=== PATIENT | male | born 1995 | race Caucasian/White ===

== ENCOUNTER 2023-10-30 10:05 | Emergency (ER) | payer OTHER ==
[~2023-10-30] VITALS: Ht 193 cm; Wt 72.6 kg
[2023-10-30 10:21] VITALS: BP 107/69; PULSE 72; RESP 18; TEMP 98; O2SAT 98
[2023-10-30] MEDS: NACL 0.9% 1,000 ML IV ONE (11:28)
[2023-10-30] MEDS: ONDANSETRON 4 MG/2 ML VIAL IVP ONE (11:30)
[2023-10-30 11:43] LABS: BASOPHILS % (AUTO) 0.3 % (0.0-2.0); EOSINOPHILS # (AUTO) 0.1 K/uL (0-0.4); EOSINOPHILS % (AUTO) 0.8 % (0.0-4.0); HEMATOCRIT 43.3 % (36-52); LYMPHOCYTES # (AUTO) 1.9 K/uL (2.0-11.5); LYMPHOCYTES % (AUTO) 25.1 % (20.5-51.1); MEAN CORPUSCULAR HEMOGLOBIN 33 pg (27-31); MEAN CORPUSCULAR HGB CONC 35 g/dL (33-37); MONOCYTES # (AUTO) 0.6 K/uL (0.8-1.0); MONOCYTES % (AUTO) 7.8 % (1.7-9.3); PLATELET COUNT (AUTO) 204 K/uL (140-450); RED BLOOD CELL COUNT(AUTO) 4.55 MIL/uL (4.20-6.10); RED CELL DISTRIBUTION WIDTH 12.9 % (11.6-13.7); WHITE BLOOD COUNT (AUTO) 7.6 K/uL (4.8-10.8)
[2023-10-30 11:53] LABS: ANION GAP 11.7 (8-16); CALCIUM 8.7 mg/dL (8.5-10.1); CARBON DIOXIDE 30.4 mmol/L (21-32); POTASSIUM 4.1 mmol/L (3.5-5.1)
[2023-10-30 12:07] LABS: ALBUMIN 3.9 g/dL (3.4-5.0); BILIRUBIN,DIRECT 0.2 mg/dL (0.0-0.3); TOTAL BILIRUBIN 1.3 mg/dL (0.0-1.0); TOTAL PROTEIN, SERUM 7.1 g/dL (6.4-8.2)
[2023-10-30] MEDS ORDERED: ONDA-188 SL (12:26)
[2023-10-30 12:45] VITALS: BP 111/61; PULSE 60; RESP 16; TEMP 36.66960; O2SAT 98
== END 2023-10-30 12:45 | disposition home or self-care (01) ==
LOC: MED 10:05
DX: A08.4 Viral intestinal infection, unspecified (principal); E05.90 Thyrotoxicosis, unspecified without thyrotoxic crisis or storm
CPT/HCPCS: 36415; 80048; 80076; 83690; 85025; 96360; 99283; J2405; J7030